=== PATIENT | male | born 1955 | race Two or more races ===

== ENCOUNTER 2018-06-16 11:13 | Emergency (ER) | payer OTHER ==
[~2018-06-16] VITALS: Ht 177.8 cm; Wt 68.9 kg
[2018-06-16] MEDS ORDERED: AVAPRO75 MG PO (11:22)
[2018-06-16] MEDS ORDERED: ATENOLOL100 MG (11:22)
[2018-06-16] MEDS ORDERED: METFORMIN HCL500 M2 PO (11:22)
[2018-06-16] MEDS ORDERED: LIPITOR20 MG PO (11:23)
[2018-06-16] MEDS ORDERED: AMBIEN10 MG PO (11:23)
[2018-06-16] MEDS ORDERED: ALLEGRA-D 24 H1 EACH (11:24)
== END 2018-06-16 13:31 | disposition home or self-care (01) ==
LOC: ER 11:13
DX: R94.31 Abnormal electrocardiogram [ECG] [EKG] (principal)

== ENCOUNTER → 2018-07-21 | Outpatient (CLI) | payer OTHER ==
[~2018-07-21] MED LIST: ALLEGRA-D 24 H1 EACH; AMBIEN10 MG PO; ATENOLOL100 MG; AVAPRO75 MG PO; LIPITOR20 MG PO; METFORMIN HCL500 M2 PO
== END | disposition home or self-care (01) ==
LOC: NUCLEAR 07:00
DX: I50.32 Chronic diastolic (congestive) heart failure (principal)
CPT/HCPCS: 78452; 93017; A9500